=== PATIENT | male | born 1970 | race Two or more races ===

== ENCOUNTER 2024-03-13 15:55 | Emergency (ER) | payer MEDICAID, SELFPAY ==
--- NOTE | 2024-03-13 16:09 | EDNOTE_ITS ---
<Statement entered by Ingris Radford MD - 03/14/24 04:28> As co-signing physician, I was present and available for consult prn. I concur with the plan and care as documented by the midlevel provider. ED General RME/HPI General Chief complaint: General Adult/Misc Complain Stated complaint: BLOOD SUGAR Time Seen by Provider: 03/13/24 16:08 Arrival date/time: 03/13/24 15:55 CC: Medical clearance HPI patient presents the ER with an elevated blood sugar of 557. Patient appears cuffed, with [facility]. The patient admits by choice he does not take his metformin every day and has plenty supply and metformin at home. Patient denies fever chills shortness of breath or difficult y breathing. Related Data Home Medications ?Medication ?Instructions ?Recorded ?Confirmed gabapentin 300 mg capsule 300 mg PO DAILY Never pain 03/13/23 09/10/23 metformin 1,000 mg tablet 1,000 mg PO DAILY Diabetes Type 2 03/13/23 03/13/23 tamsulosin 0.4 mg capsule (Flomax) 0.4 mg PO DAILY 03/13/23 03/13/23 Previous Rx's ?Medication ?Instructions ?Recorded ibuprofen 800 mg tablet 800 mg PO TID PRN pain #30 tabs 03/13/23 Allergies Allergy/AdvReac Type Severity Reaction Status Date / Time No Known Allergies Allergy Unverified 09/10/23 13:17 Review of Systems Review of Systems Narrative Review of Systems: GEN: No fever, no chills, no weight loss EYES: No discharge, no visual changes, no pain HEENT: No ear pain, no congestion, no sore throat PULM: No shortness of breath, no cough, no congestion CV: No chest pain, no dyspnea on exertion, no palpitations GI: No nausea, no vomiting, no diarrhea, no pain, no constipation : No frequency, no urgency, no dysuria MUSC/SKEL: No joint pain, no back pain SKIN: No rash PSYCH: No hallucinations, no depression HEME/LYMPH: No easy bleeding or bruising tendencies NEURO: No weakness, no headache Past Medical History Past Medical History NEUROLOGIC: Positive Neurological Disorders and Meningitis CARDIAC: Negative Cardiac Disorders, Angina, Atherosclerotic Heart Disease, Aneurysm or Congestive Heart Failure RESPIRATORY: Negative Chronic Obstructive Pulmonary Disease (COPD) GASTROINTESTINAL: Negative Gastrointestinal Disorders, Hepatitis or Colorectal Cancer GENITOURINARY: Positive Genitourinary Disorders and Benign Prostatic Hyperplasia; Negative Renal Disease or Prostate Cancer REPRODUCTIVE: Negative Breast Cancer or Testicular Cancer MUSCULOSKELETAL: Negative Musculoskeletal Disorders, Bone Cancer or Carpal Tunnel Syndrome ENDOCRINE: Positive Endocrine Disorders and Diabetes Mellitus Type 2; Negative Diabetes Mellitus Type 1 HEMATOLOGIC: Negative Blood Disorders OTHER HISTORY: Positive Chicken Pox (childhood); Negative Hospitalization, Autoimmune Disease, Down Syndrome, Developmental Delay, Shingles, Falls, Blood Transfusions, Blood Transfusion Reaction, Anesthesia Reactions, Organ Transplant, Chemotherapy, Radiation Therapy, Hyperbaric Therapy, MRSA, Vancomycin-Resistant Enterococci, Human Immunodeficiency Virus (HIV), Measles, Mumps, Rubella (Italian Measles), Pertussis, Clostridium Difficile, Cancer, Breast Cancer, Cervical Cancer, Colorectal Cancer, Lung Cancer, Ovarian Cancer, Prostate Cancer or Testicular Cancer Family History FAMILY HISTORY: Positive Family Cardiac Disorders; Negative Family Psychiatric Problems, Family Respiratory Disorders, Family Gastrointestinal Problems, Family Cancer, Family Surgery or Family Anesthesia Reaction Surgical History SURGICAL: Negative Cardiac Surgery, Endocrine Surgery, Thyroidectomy, Ear Surgery, Abdominal Surgery, Nephrectomy, Transurethral Resection, Joint Replacement, Amputation, Open Reduction Internal Fixation, Arthroscopy, Neurologic Surgery, Brain Shunt, Mastectomy, Lumpectomy, Hysterectomy, Tubal Ligation, Section, Vasectomy or Organ Transplant Social History SMOKING STATUS: Current every day smoker SECOND HAND EXPOSURE: Yes ED Exam Narrative Physical exam: [General: Not in any acute distress Head normocephalic HEENT: Within acceptable limits Neck is supple nontender Chest equal chest rise nontender to palpation Respiratory: Clear to auscultation no wheezes crackles or rubs CV: Rate rhythm is regular no murmurs rubs or clicks Abdomen is soft nontender no masses positive bowel sounds all 4 quadrants Back: No CVA tenderness no spinous process tenderness from cervical spine thoracic and lumbar spine Skin: Intact no petechiae rash induration ulceration or crepitus Extremities: Moving all extremity against resistance cap refill less than 2 seconds neurosensory intact Neuro: Awake alert oriented x3 Glascow coma 15 no focal deficits] Course Quality Measures none Orders Category Date Time Status Glucose [Bedside Blood Glucose] Q1HR Care 03/13/24 16:11 Active Saline [Insert IV] NOW Care 03/13/24 17:31 Active Insulin Regular Med 03/13/24 16:09 Discontinued 10 unit SC X1 ONE Insulin Regular Med 03/13/24 17:47 Discontinued 2 unit IV X1 ONE Insulin Regular Med 03/13/24 17:31 Discontinued 5 unit IV X1 ONE Ketorolac Inj [Toradol Inj] Med 03/13/24 18:10 Discontinued 15 mg IVP X1 ONE Sodium Chloride 0.9% 1000 ml [Ns] 1,000 ml Med 03/13/24 17:31 Discontinued IV 999 mls/hr Vital Signs Vital signs: Vital Signs Temperature 98.3 F 03/13/24 16:15 Pulse Rate 82 03/13/24 16:15 Respiratory Rate 16 03/13/24 16:15 Blood Pressure 131/84 H 03/13/24 16:15 Pulse Oximetry (%) 100 03/13/24 16:15 Oxygen Delivery Method Room Air 03/13/24 16:15 [facility] Patient data External records reviewed:: [facility] previous records Clinical information provided by:: patient and law enforcement Social determinants that could affect healthcare access:: none Patient has the following chronic illnesses:: Diabetes How is presenting disease/condition affected by chronic disease/condition?: exacerbated by Evaluation data The following diagnostics were reviewed and interpreted by me:: lab results and other (specify) Lab and/or radiology exams considered but not ordered:: Elevated blood glucose Interpretation Summary: None Medications Medications considered but not ordered:: None Medication administrations:: Medication Administration History Discontinued Medications Sodium Chloride (Ns) 1,000 mls @ 999 mls/hr IV .Q1H1M ONE Stop: 03/13/24 18:31 Last Admin: 03/13/24 17:45 Dose: 999 mls/hr Documented By: Maryan Insulin Human Regular (Insulin Hum Regular 1 Unit/0.01 Ml (Per Unit)) 10 unit SC X1 ONE Stop: 03/13/24 16:10 Last Admin: 03/13/24 16:26 Dose: 10 unit Documented By: BD Co-signed By: [facility] Insulin Human Regular (Insulin Hum Regular 1 Unit/0.01 Ml (Per Unit)) 5 unit IV X1 ONE Stop: 03/13/24 17:32 Last Admin: 03/13/24 18:38 Dose: Not Given Documented By: [facility] Non-Admin Reason: Cancelled by Provider Insulin Human Regular (Insulin Hum Regular 1 Unit/0.01 Ml (Per Unit)) 2 unit IV X1 ONE Stop: 03/13/24 17:48 Last Admin: 03/13/24 17:49 Dose: 2 unit Documented By: MICHAEL Co-signed By: MADELINE Ketorolac Tromethamine (Ketorolac Inj 30 Mg/Ml Vial) 15 mg IVP X1 ONE Stop: 03/13/24 18:11 Last Admin: 03/13/24 18:28 Dose: 15 mg Documented By: MYRIAM None Consultations Consultation(s) initiated? (list below): No Diagnosis Differential Diagnosis ED Complaint MDM: Hyperglycemia hypoglycemia DKA Most likely diagnosis given after review of the tests above:: Hyperglycemia due to medication noncompliance Admission Indicated Admission indicated?: not indicated Explain why admission is indicated or not indicated:: Stable for long term Admission Request Was there a request for admission?: No Disposition Plan Disposition Plan: Discharge Discharge Attestation Discharge Attestation: The patient and all family members were given an opportunity to ask questions and understood the discharge instructions. Discharge instructions specifically effects, indications for sooner follow up or return to the emergency department, and the expected course of current diagnosis. Patient condition: Stable Medical Decision Making Differential Diagnosis Differential Diagnosis: Hyperglycemia hypoglycemia DKA Discharge Plan Plan Patient Disposition: Nursing Home/Court/Law Patient condition on transfer: Stable Prescriptions/Referrals Prescriptions/Med Rec: No Action tamsulosin [Flomax] 0.4 mg Capsule 0.4 mg PO DAILY gabapentin 300 mg Capsule 300 mg PO DAILY metformin 1,000 mg Tablet 1,000 mg PO DAILY ibuprofen 800 mg tablet 800 mg PO TID PRN (Reason: pain) Qty: 30 0RF Referrals: No Primary/Family,Physician [Primary Care Provider] - In 1 week Problem List Clinical Impression: Hyperglycemia due to diabetes mellitus Patient/Caregiver Discharge Instructions Education Materials: Oral Medicines for Type 2 Diabetes Additional Instructions: Take your medications as prescribed. Print Language: Lebanese PA/FIRST AID ATTENDANT Supervising Physician PA/FIRST AID ATTENDANT Supervising Physician: Amaury Scherer ENP
[2024-03-13 16:15] VITALS: BP 131/84; PULSE 82; RESP 16; TEMP 36.8; O2SAT 100; BMI 27.1
--- NOTE | 2024-03-13 16:15 | PC.NURSE ---
pt brought by [facility] from care home due to high blood sugar over 500.
[2024-03-13] MEDS: INSULIN HUM REGULAR 1 UNIT/0.01 ML (PER UNIT) 10 UNIT SC (16:26)
[2024-03-13 17:45] VITALS: BP 134/98; PULSE 89; RESP 16; O2SAT 100
[2024-03-13] MEDS: SODIUM CHLORIDE 0.9% 1000 ML 1,000 ML 999 ML IV (17:45)
[2024-03-13] MEDS: INSULIN HUM REGULAR 1 UNIT/0.01 ML (PER UNIT) 2 UNIT IV (17:49)
[2024-03-13] MEDS: KETOROLAC INJ 30 MG/ML VIAL 15 MG IVP (18:28)
[2024-03-13 19:38] VITALS: BP 144/96; PULSE 98; RESP 18; TEMP 36.6; O2SAT 100
[2024-03-13 20:11] VITALS: BP 146/90; PULSE 904; RESP 18; TEMP 36.6; O2SAT 99
== END 2024-03-13 20:25 ==
PROVIDERS: Emergency Provider Emergency Medicine
DX: Z02.89 Encounter for other administrative examinations (principal); E11.65 Type 2 diabetes mellitus with hyperglycemia; Z79.84 Long term (current) use of oral hypoglycemic drugs
CPT/HCPCS: 96372; 99283; J1815; J1885; J7030